=== PATIENT | female | born 1970 | race Caucasian/White ===

== ENCOUNTER 2016-08-15 23:14 | Inpatient (IN) | payer BC, OTHER ==
[~2016-08-15] VITALS: Ht 170.2 cm; Wt 64.6 kg
[2016-08-16 00:43] VITALS: BP 95/54; PULSE 66; RESP 18; TEMP 98.4; O2SAT 97
[2016-08-16] MEDS ORDERED: BIRTH CONTROL (00:49)
[2016-08-16] MEDS ORDERED: KLON2TAB PO (00:49)
[2016-08-16] MEDS ORDERED: LURA20TA PO (00:49)
[2016-08-16] MEDS ORDERED: CYMB60CA PO (00:49)
[2016-08-16 01:00] LABS: AUTOMATED NEUTROPHIL # 8.2 TH/MM3 (1.8-7.7); BASOPHIL # 0.1 TH/MM3 (0-0.2); BASOPHIL % 0.5 % (0.0-2.0); EOSINOPHIL # 0.1 TH/MM3 (0-0.4); EOSINOPHIL % 0.6 % (0.0-4.0); HEMATOCRIT 36.7 % (35.0-46.0); HEMO FLAGS DIFF FINAL; LYMPH % 21.2 % (9.0-44.0); LYMPHOCYTE # 2.4 TH/MM3 (1.0-4.8); MEAN CORPUSCULAR HEMOGLOBIN 31.5 PG (27.0-34.0); MEAN CORPUSCULAR HGB CONC 33.8 % (32.0-36.0); MONO % 5.9 % (0.0-8.0); NEUT % 71.8 % (16.0-70.0); PLATELET COUNT 301 TH/MM3 (150-450); RED BLOOD COUNT 3.94 MIL/MM3 (4.00-5.30); RED CELL DISTRIBUTION WIDTH 12.4 % (11.6-17.2); WHITE BLOOD COUNT 11.4 TH/MM3 (4.0-11.0)
[2016-08-16 01:12] LABS: ALT (GPT) 30 U/L (10-53); ANION GAP 11 MEQ/L (5-15); AST (GOT) 19 U/L (15-37); BICARBONATE 20.7 MEQ/L (21.0-32.0); BLOOD UREA NITROGEN 19 MG/DL (7-18); CHLORIDE 110 MEQ/L (98-107); GLOMERULAR FILTRATION RATE 64 ML/MIN (>89); POTASSIUM 3.7 MEQ/L (3.5-5.1); SODIUM (NA) 142 MEQ/L (136-145)
[2016-08-16 01:14] LABS: ACETAMINOPHEN LESS THAN 2.0 MCG/ML (10.0-30.0); ALKALINE PHOSPHATASE 88 U/L (45-117); TOTAL BILIRUBIN ADULT 0.2 MG/DL (0.2-1.0)
[2016-08-16] MEDS: ACETAMINOPHEN 325 MG TAB PO ONE (01:15)
[2016-08-16 01:19] LABS: AMPHETAMINE, URINE POS (NEG); BACTERIA, URINE OCC /hpf; BARBITURATES, URINE NEG (NEG); BLOOD, URINE TRACE (NEG); CALCIUM OXALATE CRYSTALS,URINE FEW /hpf; COCAINE, URINE NEG (NEG); COMMENT (UR) CULT NOT INDICATED; CULTURE IF INDICATED CULT NOT INDICATED; GLUCOSE,URINE NEG (NEG); HYALINE CAST, URINE 3 /lpf (RARE); KETONE, URINE NEG (NEG); MUCUS URINE FEW /lpf (OCC); NITRITE,URINE NEG (NEG); SQUAMOUS EPITHELIAL CELL URINE 3 /hpf (0-5); URINE COLOR YELLOW (YELLW/STRAW)
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
[2016-08-16 06:37] VITALS: BP 94/52; PULSE 60; RESP 15; O2SAT 99
[2016-08-16] MEDS ORDERED: TOPI1TAB97 PO (08:14)
[2016-08-16] MEDS ORDERED: ACYC800T PO (08:14)
[2016-08-16] MEDS ORDERED: AMBI5TAB PO (08:14)
[2016-08-16] MEDS ORDERED: LISD70 PO (08:14)
[2016-08-16] MEDS ORDERED: [UNRECOGNIZED DRUG - CODE] SQ (08:14)
[2016-08-16] MEDS ORDERED: diphenhydrAMINE HCL 50 MG/ML VIAL - HS PRN IM (12:00)
[2016-08-16] MEDS ORDERED: MAGNESIUM HYDROXIDE SUSP 30 ML CUP PO PRN (12:00)
[2016-08-16] MEDS ORDERED: hydrOXYzine HCL 50 MG TAB PO PRN (12:00)
[2016-08-16] MEDS ORDERED: ALUMINUM/MAGNESIUM/SIMETH 30 ML CUP PO PRN (12:00)
[2016-08-16 12:12] VITALS: BP 114/69; PULSE 67; RESP 18; TEMP 97.4; O2SAT 99
[2016-08-16] MEDS: ACETAMINOPHEN 325 MG TAB PO PRN ×2 (16:07→21:36)
[2016-08-16 17:29] VITALS: BP 139/74; PULSE 68; RESP 16; TEMP 98.1; O2SAT 99
[2016-08-16] MEDS: diphenhydrAMINE HCL 50 MG CAP - HS PRN PO (21:36)
[2016-08-17 06:14] VITALS: BP 101/66; PULSE 50; RESP 17; TEMP 98.5; O2SAT 100
[2016-08-17 09:48] LABS: ANION GAP 8 MEQ/L (5-15); BICARBONATE 25.5 MEQ/L (21.0-32.0); BLOOD UREA NITROGEN 18 MG/DL (7-18); CHLORIDE 106 MEQ/L (98-107); GLOMERULAR FILTRATION RATE 65 ML/MIN (>89); POTASSIUM 3.9 MEQ/L (3.5-5.1); SODIUM (NA) 139 MEQ/L (136-145)
[2016-08-17 09:59] LABS: FREE T4 0.84 NG/DL (0.76-1.46); HDL CHOLESTEROL 79.6 MG/DL (40.0-60.0); LDL CHOLESTEROL 78 MG/DL (0-99)
[2016-08-17 13:03] LABS: HEMOGLOBIN A1b 1.6 %; HEMOGLOBIN Ao 85.9 %; HEMOGLOBIN LA1C 1.9 %; HEMOGLOBIN P3 3.6 %
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
[2016-08-17] MEDS ORDERED: MAGNESIUM HYDROXIDE SUSP 30 ML CUP PO PRN (15:00)
[2016-08-17] MEDS ORDERED: ALUMINUM/MAGNESIUM/SIMETH 30 ML CUP PO PRN (15:00)
[2016-08-17] MEDS ORDERED: ACETAMINOPHEN 325 MG TAB PO PRN (15:00)
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
[2016-08-17] MEDS ORDERED: PILL SPLITTER OTHER PRN (15:15)
[2016-08-17 15:32] VITALS: BP 105/67; PULSE 65; RESP 12; TEMP 98.2; O2SAT 99
[2016-08-17] MEDS: DULoxetine HCl DR 60 MG CAP PO SCH (18:20)
[2016-08-17] MEDS: LURASIDONE 40 MG TAB PO SCH (18:20)
[2016-08-17] MEDS: TOPIRAMATE 25 MG TAB PO SCH ×2 (18:20→20:32)
[2016-08-17] MEDS: AMITRIPTYLINE HCL 25 MG TAB PO SCH (20:32)
[2016-08-17] MEDS: OCTREOTIDE INJ 50 MCG/ML AMP SQ SCH (21:37)
[2016-08-17] MEDS: diphenhydrAMINE HCL 50 MG CAP - HS PRN PO (21:42)
[2016-08-18] MEDS: OCTREOTIDE INJ 50 MCG/ML AMP SQ SCH ×4 (05:36→22:11)
[2016-08-18] MEDS: ACETAMINOPHEN 325 MG TAB PO PRN ×2 (05:40→16:06)
[2016-08-18 05:45] VITALS: BP 97/61; PULSE 57; RESP 16; O2SAT 98
[2016-08-18] MEDS: ACYCLOVIR 800 MG TAB PO SCH ×2 (09:00→10:34)
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
[2016-08-18] MEDS: TOPIRAMATE 25 MG TAB PO SCH ×2 (10:33→20:27)
[2016-08-18] MEDS: DULoxetine HCl DR 60 MG CAP PO SCH (10:33)
--- NOTE | 2016-08-18 13:49 | HHI.PYPN ---
Subjective Remarks Patient seen in my office with her and counselor Silvia. Patient's prior to patient coming in the room said he noticed significant changes in behavior and mood over the past few months. After the of her female friend. Along with the reminiscing about the multiple deaths 10 years ago. 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 For now continue medications no change patient's after treatment her house to bring back verification of her control pills and her thyroid medication. Patient continues to focus on medication though she now is starting to consider that also the need for good talk therapy. She is also considering the possibility of an inpatient "treatment center" perhaps such as [facility] Review of Systems Except as stated in HPI: all other systems reviewed are Neg Objective Alert: Yes [place]: Person, Place, Date, Situation Mood: Anxious, Calm, Depressed Affect: Labile Memory Intact: Comment (fair) Hallucinations: Other (denies) Delusions: No Delusion Type: Other (mildly vigilant) Suicidal: Ideation (denies) Homicidal: Ideation (denies) Insight/Judgment Poor to fair Vitals/IOs Vital Signs Date Time Temp Pulse Resp B/P Pulse Ox O2 Delivery O2 Flow Rate FiO2 08/18/16 05:45 57 16 97/61 98 08/17/16 15:32 98.2 08/16/16 06:37 Room Air Assessment & Plan Problem List: (1) Major depressive disorder, recurrent severe without psychotic features ICD Code: F33.2 Assessment & Plan Estimated LOS: days patient continues depressed though softening today denying suicidality Justification for Cont. Inpt. At this time patient would significantly deteriorate placed in the lower level of care Discharge Planning To be determined Request HC Surrog/Guard Advoc?: No Cabrera Stephenson MD Aug 18, 2016 13:49
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
--- NOTE | 2016-08-18 17:47 | RADRPT ---
EXAM DATE/TIME: 08/18/2016 17:27 [facility] COMPARISON: No previous studies available for comparison. INDICATIONS : Left knee pain post fall yesterday MEDICAL HISTORY : None. SURGICAL HISTORY : ACL, meniscus repair ENCOUNTER: Initial ACUITY: 1 day PAIN SCORE: 8/10 LOCATION: Left lateral and medial knee FINDINGS: There is no evidence of joint effusion or fracture. Mineralization is normal. There has been previous ligament repairs. No significant arthritic changes. CONCLUSION: Of acute bony injury Cabrera Mak MD on August 18, 2016 at 17:40 Board Certified Radiologist. This report was verified electronically.
[2016-08-18 18:00] VITALS: BP 110/74; PULSE 75; RESP 18; TEMP 98.5; O2SAT 98
[2016-08-18] MEDS: LURASIDONE 40 MG TAB PO SCH (18:09)
[2016-08-18] MEDS: AMITRIPTYLINE HCL 25 MG TAB PO SCH (20:27)
[2016-08-18] MEDS: diphenhydrAMINE HCL 50 MG CAP - HS PRN PO (22:10)
[2016-08-19] MEDS: ACETAMINOPHEN 325 MG TAB PO PRN (04:43)
[2016-08-19] MEDS: OCTREOTIDE INJ 50 MCG/ML AMP SQ SCH ×3 (05:30→21:47)
[2016-08-19 05:56] VITALS: BP 114/69; PULSE 56; RESP 16; TEMP 97.4; O2SAT 98
[2016-08-19 08:26] LABS: HEMATOCRIT 39.1 % (35.0-46.0); MEAN CELL VOLUME 95.2 FL (80.0-100.0); MEAN CORPUSCULAR HEMOGLOBIN 31.5 PG (27.0-34.0); MEAN CORPUSCULAR HGB CONC 33.1 % (32.0-36.0); PLATELET COUNT 250 TH/MM3 (150-450); RED BLOOD COUNT 4.11 MIL/MM3 (4.00-5.30); RED CELL DISTRIBUTION WIDTH 12.6 % (11.6-17.2); REVIEW FLAG FINAL; WHITE BLOOD COUNT 6.2 TH/MM3 (4.0-11.0)
[2016-08-19 08:38] LABS: BICARBONATE 28.7 MEQ/L (21.0-32.0); MAGNESIUM 2.3 MG/DL (1.5-2.5); POTASSIUM 3.7 MEQ/L (3.5-5.1)
[2016-08-19] MEDS: DULoxetine HCl DR 60 MG CAP PO SCH (09:31)
[2016-08-19] MEDS: ACYCLOVIR 800 MG TAB PO SCH (09:31)
[2016-08-19] MEDS: TOPIRAMATE 25 MG TAB PO SCH ×2 (09:31→21:47)
--- NOTE | 2016-08-19 15:33 | HHI.PYPN ---
Subjective Remarks Patient seen in her room with medical student Scott, patient's affect show some improvement is calming there appears to be somewhat less anxiety. However she states there is some continue anxiety that she says feels more physical related to the behaviors of her roommates. Overall she says she's feeling more positive feeling better about herself. She felt good with the visit with her yesterday. We have verification of her control pills and her thyroid medication her passing that up to the pharmacy also Review of Systems Except as stated in HPI: all other systems reviewed are Neg Objective Alert: Yes [place]: Person, Place, Date, Situation Mood: Anxious, Calm, Depressed Affect: Labile Memory Intact: Comment (fair) Hallucinations: Other (denies) Delusions: No Delusion Type: Other (mildly vigilant) Suicidal: Ideation (denies) Homicidal: Ideation (denies) Insight/Judgment Poor Labs Test 08/19/16 06:56 White Blood Count 6.2 TH/MM3 Red Blood Count 4.11 MIL/MM3 Hemoglobin 12.9 GM/DL Hematocrit 39.1 % Mean Corpuscular Volume 95.2 FL Mean Corpuscular Hemoglobin 31.5 PG Mean Corpuscular Hemoglobin 33.1 % Concent Red Cell Distribution Width 12.6 % Platelet Count 250 TH/MM3 Mean Platelet Volume 8.0 FL Sodium Level 140 MEQ/L Potassium Level 3.7 MEQ/L Chloride Level 104 MEQ/L Carbon Dioxide Level 28.7 MEQ/L Anion Gap 7 MEQ/L Blood Urea Nitrogen 20 MG/DL Creatinine 0.97 MG/DL Estimat Glomerular Filtration 61 ML/MIN Rate Random Glucose 122 MG/DL Calcium Level 8.4 MG/DL Magnesium Level 2.3 MG/DL Vitals/IOs Vital Signs Date Time Temp Pulse Resp B/P Pulse Ox O2 Delivery O2 Flow Rate FiO2 08/19/16 06:21 20 08/19/16 05:56 97.4 56 114/69 98 08/16/16 06:37 Room Air Intake and Output 08/18/16 08/18/16 08/19/16 08:00 16:00 00:00 Intake Total 240 ml Balance 240 ml Assessment & Plan Problem List: (1) Major depressive disorder, recurrent severe without psychotic features ICD Code: F33.2 Assessment & Plan Estimated LOS: days patient continues depressed but is softening somewhat. She showing some mild increase insight into her issues also. For now continue treatment no change Justification for Cont. Inpt. At this time patient will decompensate if placed in a lower level of care Discharge Planning To be determined Request HC Surrog/Guard Advoc?: No Cabrera Stephenson MD Aug 19, 2016 15:33
[2016-08-19] MEDS: LURASIDONE 40 MG TAB PO SCH (17:17)
[2016-08-19 18:00] VITALS: BP 105/58; PULSE 63; RESP 18; TEMP 97.7; O2SAT 99
[2016-08-19] MEDS: diphenhydrAMINE HCL 50 MG CAP - HS PRN PO (21:47)
[2016-08-19] MEDS: AMITRIPTYLINE HCL 25 MG TAB PO SCH (21:47)
[2016-08-20] MEDS ORDERED: NATURE THYROID PO SCH (06:00)
[2016-08-20] MEDS: OCTREOTIDE INJ 50 MCG/ML AMP SQ SCH ×3 (06:31→21:30)
[2016-08-20] MEDS: ACETAMINOPHEN 325 MG TAB PO PRN (08:58)
[2016-08-20] MEDS: ETHINYL ESTRADIOL PO SCH (09:00)
[2016-08-20] MEDS ORDERED: ETHINYL ESTRADIOL PO SCH (09:00)
[2016-08-20] MEDS ORDERED: NORGESTIMATE PO SCH (09:00)
[2016-08-20] MEDS: NORGESTIMATE PO SCH (09:00)
[2016-08-20] MEDS: ACYCLOVIR 800 MG TAB PO SCH (09:44)
[2016-08-20] MEDS: DULoxetine HCl DR 60 MG CAP PO SCH (09:44)
[2016-08-20] MEDS: TOPIRAMATE 25 MG TAB PO SCH ×2 (09:44→21:29)
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
--- NOTE | 2016-08-20 16:04 | HHI.PYPN ---
Subjective Remarks Patient seen in her room with counselor lives with medical student Scott, patient showing increased affect better eye contact more alert calm and pleasant. Stating she is feeling much better. Feels medication adjustments have really helped her. She now feels she can get further better in the community setting as opposed to her residential. For now continue treatment no change patient continues to show stability in her mood and outlook. Consider discharge first part next week Review of Systems Except as stated in HPI: all other systems reviewed are Neg Objective Alert: Yes [place]: Person, Place, Date, Situation Mood: Anxious, Calm, Depressed Affect: Labile Memory Intact: Comment (fair) Hallucinations: Other (denies) Delusions: No Delusion Type: Other (mildly vigilant) Suicidal: Ideation (denies) Homicidal: Ideation (denies) Insight/Judgment Poor to fair Vitals/IOs Vital Signs Date Time Temp Pulse Resp B/P Pulse Ox O2 Delivery O2 Flow Rate FiO2 08/19/16 18:00 97.7 63 18 105/58 99 Assessment & Plan Problem List: (1) Major depressive disorder, recurrent severe without psychotic features ICD Code: F33.2 Assessment & Plan Estimated LOS: days patient's depression is softening, her affect is improving , she showing some increased processing of her issues. For now continue treatment Justification for Cont. Inpt. At this time patient will decompensate the placed on the lower level of care Discharge Planning To be determined Request HC Surrog/Guard Advoc?: No Cabrera Stephenson MD Aug 20, 2016 16:04
[2016-08-20] MEDS: THYROID 15 MG TAB PO SCH (17:00)
[2016-08-20 18:00] VITALS: BP 104/57; PULSE 59; RESP 16; TEMP 97.4; O2SAT 97
[2016-08-20] MEDS: LURASIDONE 40 MG TAB PO SCH (18:44)
[2016-08-20] MEDS: AMITRIPTYLINE HCL 25 MG TAB PO SCH (21:29)
[2016-08-21 06:13] VITALS: BP 99/57; PULSE 54; RESP 17; TEMP 97.4; O2SAT 99
[2016-08-21] MEDS: THYROID 15 MG TAB PO SCH (06:23)
[2016-08-21] MEDS: OCTREOTIDE INJ 50 MCG/ML AMP SQ SCH ×3 (06:24→21:09)
[2016-08-21] MEDS: ACYCLOVIR 800 MG TAB PO SCH (08:53)
[2016-08-21] MEDS: TOPIRAMATE 25 MG TAB PO SCH ×2 (08:53→20:51)
[2016-08-21] MEDS: DULoxetine HCl DR 60 MG CAP PO SCH (08:53)
[2016-08-21] MEDS: NORGESTIMATE PO SCH (09:00)
[2016-08-21] MEDS: ETHINYL ESTRADIOL PO SCH (09:00)
--- NOTE | 2016-08-21 15:19 | HHI.PYPN ---
Subjective Remarks Patient was seen and case discussed with nursing. Patient describes his mood as good." Compliant with her medications. Says her suicidal ideation has resolved. Behaving well on the unit Objective Alert: Yes [place]: Person, Place, Date, Situation Mood: Anxious, Depressed Affect: Euthymic Memory Intact: Comment (not tested) Hallucinations: Other (denies) Delusions: No Delusion Type: Other (none elicited) Suicidal: Ideation (denies) Homicidal: Ideation (denies) Insight/Judgment Poor Vitals/IOs Vital Signs Date Time Temp Pulse Resp B/P Pulse Ox O2 Delivery O2 Flow Rate FiO2 08/21/16 06:13 97.4 54 17 99/57 99 Assessment & Plan Problem List: (1) Major depressive disorder, recurrent severe without psychotic features ICD Code: F33.2 Assessment & Plan Continue current treatment plan Justification for Cont. Inpt. Patient would decompensate in a less restrictive setting Request HC Surrog/Guard Advoc?: No Dillon Barrera DO Aug 21, 2016 15:19
[2016-08-21] MEDS: LURASIDONE 40 MG TAB PO SCH (16:45)
[2016-08-21 18:18] VITALS: BP 105/69; PULSE 71; RESP 18; TEMP 98.8; O2SAT 99
[2016-08-21] MEDS: AMITRIPTYLINE HCL 50 MG TAB PO SCH (20:50)
[2016-08-21] MEDS: diphenhydrAMINE HCL 50 MG CAP PO PRN (20:50)
[2016-08-22 05:59] VITALS: BP 117/68; PULSE 53; RESP 16; TEMP 97.4; O2SAT 100
[2016-08-22] MEDS: OCTREOTIDE INJ 50 MCG/ML AMP SQ SCH ×3 (06:00→21:01)
[2016-08-22] MEDS: THYROID 15 MG TAB PO SCH (06:00)
[2016-08-22] MEDS: ETHINYL ESTRADIOL PO SCH (08:30)
[2016-08-22] MEDS: NORGESTIMATE PO SCH (08:30)
[2016-08-22] MEDS: DULoxetine HCl DR 60 MG CAP PO SCH (08:30)
[2016-08-22] MEDS: ACYCLOVIR 800 MG TAB PO SCH (08:31)
[2016-08-22] MEDS: TOPIRAMATE 25 MG TAB PO SCH ×2 (08:31→20:50)
[2016-08-22] MEDS: ACETAMINOPHEN 325 MG TAB PO PRN (08:33)
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
--- NOTE | 2016-08-22 14:18 | HHI.PYPN ---
Subjective Remarks Patient was seen and case discussed with nursing. Patient remains perseverative on her insomnia. She had a productive session during therapy. Speaks with her on the phone every day. She describes various life stressors before admission but says that she is able to deal with them at this time. Is "good." She denies suicidal ideation intent or plan Objective Alert: Yes [place]: Person, Place, Date, Situation Mood: Depressed Affect: Euthymic Memory Intact: Comment (not tested) Hallucinations: Other (denies) Delusions: No Delusion Type: Other (none elicited) Suicidal: Ideation (denies) Homicidal: Ideation (denies) Insight/Judgment Improving Vitals/IOs Vital Signs Date Time Temp Pulse Resp B/P Pulse Ox O2 Delivery O2 Flow Rate FiO2 08/22/16 05:59 97.4 53 16 117/68 100 Assessment & Plan Problem List: (1) Major depressive disorder, recurrent severe without psychotic features ICD Code: F33.2 Assessment & Plan Continue current treatment plan Justification for Cont. Inpt. Patient will decompensate in a less restrictive setting Request HC Surrog/Guard Advoc?: No Dillon Barrera DO Aug 22, 2016 14:18
[2016-08-22] MEDS: LURASIDONE 40 MG TAB PO SCH (16:46)
[2016-08-22 17:39] VITALS: BP 110/64; PULSE 80; RESP 18; TEMP 97.6; O2SAT 97
[2016-08-22] MEDS: AMITRIPTYLINE HCL 50 MG TAB PO SCH (20:50)
[2016-08-22] MEDS: diphenhydrAMINE HCL 50 MG CAP PO PRN (20:50)
[2016-08-23] MEDS: THYROID 15 MG TAB PO SCH (05:43)
[2016-08-23] MEDS: OCTREOTIDE INJ 50 MCG/ML AMP SQ SCH ×3 (05:43→20:55)
[2016-08-23 06:16] VITALS: BP 106/63; PULSE 56; RESP 18; TEMP 98.1; O2SAT 99
[2016-08-23] MEDS: TOPIRAMATE 25 MG TAB PO SCH ×2 (08:59→20:55)
[2016-08-23] MEDS: ACYCLOVIR 800 MG TAB PO SCH (08:59)
[2016-08-23] MEDS: DULoxetine HCl DR 60 MG CAP PO SCH (09:00)
[2016-08-23] MEDS: ETHINYL ESTRADIOL PO SCH (09:01)
[2016-08-23] MEDS: NORGESTIMATE PO SCH (09:01)
[2016-08-23] MEDS: ACETAMINOPHEN 325 MG TAB PO PRN (09:35)
--- NOTE | 2016-08-23 15:02 | PD.TTN ---
Patient Problems 1. Discharge planning 2. Medication compliance 3. Knowledge deficit 4. Lack of coping skills Progress Toward Goals Provider Input: Dr. Stephenson's treatment team met to discuss patient's treatment plan, medication, and discharge plan. Patient continues to do well. Dr. Stephenson anticipates discharge this week. Patient will return home. Psych Therapist Input: Patient is alert and oriented x5. Patient presents cooperative, pleasant, affect appropriate. Patient's speech was clear, organized and appropriate. Patient's tone, rate, and volume were in the normal range. Patient made good eye contact. Patient denies suicidal and homicidal ideation. Patient does not present with internal stimulation or with any delusion content. Patient is eating well, but states her sleep is off due to being on unit. Patient is medication compliant. Hospice has been contacted to assist patient when discharged. Occupational Therapist Input: Ravi QUILES reports patient recently has been attending groups. Patient is pleasant and has been engaging in activities independently. Silvia Singh [facility] Aug 23, 2016 15:02
--- NOTE | 2016-08-23 15:36 | HHI.PYPN ---
Subjective Remarks Patient seen in [place] with nurse Ilya and medical student Scott, chart review , patient compliant medications. Patient mood is improving remarkably. She states she feels much better than on admission, denies suicidality homicidality voices or visions. Is excited about her coming back to town for 2 days tomorrow. The patient continues improving will consider discharge tomorrow follow-up outpatient services through Objective Alert: Yes [place]: Person, Place, Date, Situation Mood: Depressed Affect: Euthymic Memory Intact: Comment (not tested) Hallucinations: Other (denies) Delusions: No Delusion Type: Other (none elicited) Suicidal: Ideation (denies) Homicidal: Ideation (denies) Insight/Judgment Poor to fair Vitals/IOs Vital Signs Date Time Temp Pulse Resp B/P Pulse Ox O2 Delivery O2 Flow Rate FiO2 08/23/16 06:16 98.1 56 18 106/63 99 Assessment & Plan Problem List: (1) Major depressive disorder, recurrent severe without psychotic features ICD Code: F33.2 Assessment & Plan Estimated LOS: days patient continues to improve, denying suicidality homicidality voices or visions, is hoping to focus. Patient is to do well consider discharge tomorrow Justification for Cont. Inpt. Patient continues to do well consider discharge tomorrow Discharge Planning To be determined Request HC Surrog/Guard Advoc?: No Cabrera Stephenson MD Aug 23, 2016 15:36
[2016-08-23 16:55] VITALS: BP 104/62; PULSE 69; RESP 18; TEMP 97; O2SAT 100
[2016-08-23] MEDS: LURASIDONE 40 MG TAB PO SCH (18:12)
[2016-08-23] MEDS: diphenhydrAMINE HCL 50 MG CAP PO PRN (20:55)
[2016-08-23] MEDS: AMITRIPTYLINE HCL 50 MG TAB PO SCH (20:55)
[2016-08-24] MEDS: OCTREOTIDE INJ 50 MCG/ML AMP SQ SCH ×2 (05:53→13:33)
[2016-08-24] MEDS: THYROID 15 MG TAB PO SCH (05:53)
[2016-08-24 06:24] VITALS: BP 105/67; PULSE 65; RESP 18; TEMP 98.3; O2SAT 99
[2016-08-24] MEDS: ACYCLOVIR 800 MG TAB PO SCH (08:27)
[2016-08-24] MEDS: TOPIRAMATE 25 MG TAB PO SCH (08:27)
[2016-08-24] MEDS: DULoxetine HCl DR 60 MG CAP PO SCH (08:27)
[2016-08-24] MEDS: ETHINYL ESTRADIOL PO SCH (08:28)
[2016-08-24] MEDS: NORGESTIMATE PO SCH (08:28)
[2016-08-24] MEDS: ACETAMINOPHEN 325 MG TAB PO PRN (10:26)
[2016-08-24] MEDS ORDERED: TOPA25TA8 PO (12:00)
[2016-08-24] MEDS ORDERED: AMIT50TA3 PO (12:00)
[2016-08-24] MEDS ORDERED: ACYC800T PO (12:00)
[2016-08-24] MEDS ORDERED: THYR15 PO (12:00)
[2016-08-24] MEDS ORDERED: OCTR50IN SQ (12:00)
[2016-08-24] MEDS ORDERED: LURA1TAB2 PO (12:00)
[2016-08-24] MEDS ORDERED: DULO1CAP3 PO (12:00)
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
== END 2016-08-24 14:00 | disposition home or self-care (01) | DRG 885 ==
LOC: NEPD 23:14 → NEDA 08-16 09:32 → H260 08-16 10:30
PROVIDERS: ADMIT Psychiatry & Neurology Psychiatry; ATTEND Psychiatry & Neurology Psychiatry
DX: F33.2 Major depressive disorder, recurrent severe without psychotic features (principal); I95.9 Hypotension, unspecified; R45.851 Suicidal ideations; E03.9 Hypothyroidism, unspecified; N92.0 Excessive and frequent menstruation with regular cycle
CPT/HCPCS: 73564; 80048; 80053; 80061; 80307; 81001; 83036; 83735; 84439; 84443; 84480; 84703; 85025; 85027; J2354; Q0163